=== PATIENT | male | born 1955 | race Hispanic/Latino ===

== ENCOUNTER 2024-09-19 05:47 | Day surgery (SDC) | payer OTHER ==
[2024-09-13 09:15] LABS: Absolute Eosinophils 0.1 K/uL (0-0.5); Absolute Monocytes 0.6 K/uL (0.1-1.3); Absolute Neutrophil 4.8 K/uL (1.8-8.0); Basophils % 0.3 % (0-1.3); Eosinophils % 0.8 % (0-4.4); Hematocrit 43.2 % (39.6-49.0); Hemoglobin 14.6 g/dL (13.6-17.9); Lymphocytes % 27.1 % (15.3-44.8); MCH 31.2 pg (27.0-35.0); MCHC 33.8 g/dL (32.0-36.0); MCV 92.1 fL (80-100); MPV 7.4 fL (7.6-11.3); Monocytes % 8.2 % (3.3-12.3); Neutrophils % 63.6 % (41.7-73.7); Nucleated Red Blood Cells % 0.1 % (0-0); Platelets 266 thou/uL (152-406); RBC Red Blood Cell Count 4.69 M/uL (4.33-5.43); Red Cell Distribution Width 14.1 % (12.1-15.2)
[2024-09-13 09:28] LABS: Anion Gap 6.8 mEq/L (5.0-15.0); Potassium 3.8 mEq/L (3.5-5.1)
[2024-09-19] MEDS: Ringers Lactate 1,000 ML IV ONE (06:15)
[2024-09-19] MEDS ORDERED: LIDOCAINE 2% MPF 5 ML VIAL ONE (06:47)
[2024-09-19] MEDS ORDERED: FENTANYL CITR 100 MCG/2 ML ONE (06:47)
[2024-09-19] MEDS ORDERED: propofoL 200 MG/20 ML VIAL IV ONE (06:47)
[2024-09-19] MEDS ORDERED: ONDANSETRON 4 MG/2 ML VIAL ONE (06:47)
[2024-09-19] MEDS ORDERED: EPHEDRINE SULF 50 MG/ML VIAL ONE (07:09)
[2024-09-19] MEDS: CEFAZOLIN SODIUM 1 GM/VIAL ONE (07:10)
--- NOTE | 2024-09-19 08:31 | OP ---
Date of Procedure: 09/19/2024 Surgeon: Tommy Kim MD Preoperative Diagnosis: Right knee pain with mechanical symptoms, probable meniscal tear or tears. 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 2.Grade 3 to 4 chondromalacia of the medial tibia. 3.Medial meniscal tear. 4.Exuberant fat pad. Procedures Performed: Right knee arthroscopy with medial meniscal debridement, some abrasive chondro plasty, and some synovial debridement with debridement of exuberant fat pad. Estimated Blood Loss: 10 cc. Complications: There were no complications. Specimens: No pathology specimens sent. Indication For Operation: Mr. Crisostomo is a 68-year-old male, who started having significant pain r elated to the medial aspect of his knee. He denies any real specific inciting incident. However, th e pain definitely is not decreasing and continued to be painful. Risks, benefits, and alternatives o f different methods of treating this have been discussed with him. He does have an MRI which demonst rates probable meniscal tear or tears, and agrees to proceed. Description Of Procedure: The patient was taken to the operating room and placed in supine position. General anesthesia was easily obtained by the Anesthesia staff. Following this, a well-padded tour niquet was placed on superior right thigh, however, it was not used throughout the case. Right lower extremity was then prepped and draped in usual sterile fashion for the procedure. Following this, a standard superior medial arthroscopy portal was then placed with liberation of normal-appearing syno vial fluid. This was followed by placement of inferolateral portal which was done atraumatically wit h 1 pass. The knee was then sequentially examined including suprapatellar pouch, medial and lateral gutters, medial and lateral compartments, as well as the notch and patellofemoral joint. Pertinent f indings included a surprising amount of chondral damage of the medial femoral condyle. There does ap pear to be some unstable chondral flaps. Also seen was what appeared to be a horizontal portion of m edial meniscal tear as well as a posterior more radial tear. A standard inferomedial arthroscopy por danitza was then established using a needle for localization. The chondral surface was then probed. It did have unstable flaps along the lateral third of the medial femoral condyle. A 3.5 shaver was used to debride it back to a firm hook stable base. No chondral tissue was removed other than that, derek erazo was absolutely unstable by probe palpation. Following this, attention was then turned to the media l meniscus where the medial meniscus was debrided to a firm hook stable well contoured base. Attenti on was then turned to the exuberant fat pad, which appeared to overlie essentially half of the distal femur with the knee in extension and felt that this could very well cause impingement. Therefore, t his area of the fat pad which appeared to overlie the medial femoral condyle was debrided. After thi s, the knee was again examined in all the above areas. No further pathology seen, which had minimal arthroscopic intervention. The inferior arthroscopy portals were then stapled shut. Superior medial arthroscopy portal was then used for placement of Marcaine with epinephrine. This was then stapled. The patient was then placed in a very well-padded sterile dressing, awakened, and taken to recovery room in good condition. No complications. SE/MODL Voice ID: [id number] Report ID: [id number]
[2024-09-19 09:45] VITALS: BP 139/77; TEMP 96.9
[2024-09-19 09:50] VITALS: O2SAT 96
== END 2024-09-19 09:28 | disposition home or self-care (01) ==
LOC: OR 05:47
PROVIDERS: ATTEND Orthopaedic Surgery
PROC: 0SBC4ZZ Excision of Right Knee Joint, Percutaneous Endoscopic Approach (ICD-10-PCS; principal; 2024-09-19 07:00)
DX: S83.241D Other tear of medial meniscus, current injury, right knee, subsequent encounter (principal); M25.561 Pain in right knee; M94.261 Chondromalacia, right knee
CPT/HCPCS: 29881; 85025; 80048; 36415; J2704; J2003; J3010; J2405; J7120; J0690

== ENCOUNTER 2025-01-23 05:16 | Day surgery (SDC) | payer OTHER ==
[2025-01-19 10:06] LABS: Absolute Eosinophils 0.1 K/uL (0-0.5); Absolute Lymphocytes (CBC) 2.3 K/uL (0.7-4.9); Absolute Monocytes 0.7 K/uL (0.1-1.3); Absolute Neutrophil 8.9 K/uL (1.8-8.0); Basophils % 0.4 % (0-1.3); Eosinophils % 0.6 % (0-4.4); Hematocrit 40.1 % (39.6-49.0); Hemoglobin 13.6 g/dL (13.6-17.9); Lymphocytes % 19.5 % (15.3-44.8); MCH 30.5 pg (27.0-35.0); MCHC 33.8 g/dL (32.0-36.0); MPV 7.6 fL (7.6-11.3); Monocytes % 5.8 % (3.3-12.3); Neutrophils % 73.7 % (41.7-73.7); Nucleated Red Blood Cells % 0.1 % (0-0); Platelets 388 thou/uL (152-406); RBC Red Blood Cell Count 4.46 M/uL (4.33-5.43)
[2025-01-19 10:14] LABS: PT Prothrombin Time 11.7 SECONDS (10-13.0); PTT, Activated Partial Thromb 27.4 SECONDS (27.2-37.4); Protime INR 1.03
[2025-01-19 10:18] LABS: Specific Gravity 1.014 (1.005-1.030); Sqamous Epithelial <5 /HPF (None Seen); Urine Bacteria None Seen /HPF (<20); Urine Bilirubin NEGATIVE (Negative); Urine Blood 1+ (Negative); Urine Clarity Turbid (Clear); Urine Color Light-Yellow (Yellow); Urine Culture Reflex Order REFLEXED; Urine Glucose NEGATIVE (Negative); Urine Ketones NEGATIVE (Negative); Urine Microscopic Reflex YN ORDER UMIC; Urine Mucus Slight /HPF (None Seen); Urine Nitrite 2+ (Negative); Urine Protein NEGATIVE (Negative); Urine Urobilinogen Normal (Normal); Urine WBC 20-50 /HPF (<5); Urine pH 5.5 (5.0-7.0)
--- NOTE | 2025-01-19 10:32 | RAD REPORT ---
EXAMINATION: TWO VIEW CHEST XR CLINICAL INDICATION: Male, 69 years old. [facility] MAIN pre op for day surgery. Hypertension TECHNIQUE: 2 view radiographs of the chest were performed. COMPARISON: No prior exam. FINDINGS: The lungs are well inflated and clear. No pneumothorax or sizable effusion. The heart is normal in si ze. Mediastinal contours are unremarkable. IMPRESSION: No acute or significant abnormalities.
[2025-01-19 10:37] LABS: Albumin/Globulin Ratio 0.7 (1.1-1.8); Anion Gap 12.1 mEq/L (5.0-15.0); Bilirubin Total 0.5 mg/dL (0.2-1.0); Globulin 4.4 g/dL (2.3-3.5); Potassium 4.1 mEq/L (3.5-5.1); Protein, Total 7.4 g/dL (6.4-8.2)
[2025-01-23] MEDS ORDERED: MAGNESIUM SULFATE 1 gm IVPB 1 GM/100 ML BAG IV ONE (05:45)
[2025-01-23] MEDS ORDERED: DEXMEDETOMIDINE HCL 200 MCG/2 ML VIAL ONE (05:45)
[2025-01-23] MEDS ORDERED: LIDOCAINE 2% MPF 5 ML VIAL ONE (05:50)
[2025-01-23] MEDS ORDERED: KETAMINE HCL IN 0.9 % NACL 50 MG/5 ML SYRINGE IV ONE (05:50)
[2025-01-23] MEDS ORDERED: MIDAZOLAM HCL 2 MG/2 ML INJ ONE (05:51)
[2025-01-23] MEDS ORDERED: FENTANYL CITR 100 MCG/2 ML ONE (05:51)
[2025-01-23] MEDS: Oxycodone HCl/Acetaminophen 5/325 MG TAB ONE (05:51)
[2025-01-23] MEDS ORDERED: propofoL 200 MG/20 ML VIAL IV ONE (05:51)
[2025-01-23] MEDS: ACETAMINOPHEN 500 MG TAB ONE (05:51)
[2025-01-23] MEDS: Ringers Lactate 1,000 ML IV ONE (05:58)
[2025-01-23] MEDS ORDERED: dexAMETHasone 4 MG/ML VIAL ONE (06:01)
[2025-01-23] MEDS ORDERED: BUPIVACAINE 0.25% PF 30 ML VIAL ONE (06:01)
[2025-01-23] MEDS ORDERED: LIDOCAINE 1% MPF 5 ML VIAL ONE (06:01)
[2025-01-23] MEDS ORDERED: EPINEPHRINE 1 MG/ML VIAL ONE (06:02)
[2025-01-23] MEDS: CELECOXIB 100 MG CAPSULE ONE (06:14)
[2025-01-23] MEDS: GABAPENTIN 100 MG CAP ONE (06:15)
[2025-01-23] MEDS ORDERED: TRANEXAMIC ACID 1,000 MG/10 ML VIAL IV ONE (07:10)
[2025-01-23] MEDS ORDERED: EPHEDRINE SULF 50 MG/ML VIAL ONE (07:15)
[2025-01-23] MEDS: CEFAZOLIN SODIUM 2 GM/VIAL ONE (07:20)
[2025-01-23] MEDS ORDERED: Ringers Lactate 1,000 ML IV ONE (09:10)
[2025-01-23] MEDS ORDERED: DOCUSATE NA 100 MG CAP PO PRN (09:53)
--- NOTE | 2025-01-23 09:53 | P.BOP ---
Preoperative diagnosis: right knee arthritis Postoperative diagnosis: same Primary procedure: right knee total knee arthoplasty Estimated blood loss: 100ccs Anesthesia: General Transferred to: Recovery Room Condition: Good
[2025-01-23 10:23] VITALS: O2SAT 94
--- NOTE | 2025-01-23 11:21 | OP ---
Date of Procedure: 01/23/2025 Surgeon: Tommy Kim MD Preoperative Diagnosis: Right knee severe osteoarthritis. Postoperative Diagnosis: Right knee severe osteoarthritis. Procedure: Right total knee arthroplasty using the [employer]. Estimated Blood Loss: 100 cc. Complications: There were no complications. Specimens: No pathology specimens sent other than those removed pieces at time of surgery. Indication For Operation: Mr. Crisostomo is a 69-year-old male who had severe pain in his knee. This was primarily on the medial aspect, although he did have diffuse tenderness. He had an MRI, which d emonstrated probable meniscal tear or tears. He elected at that time to have arthroscopy knowing moises t this would not affect the arthritic changes. These arthritic changes were again identified during arthroscopy. The patient tolerated the arthroscopy well, but unfortunately continued to have pain. This continued despite physical therapy as well as injection and medical management. The patient at this time opts for total knee arthroplasty and risks, benefits, alternatives of the procedure have be en discussed with him. He states he understands things as presented and wishes to proceed. Procedure In Detail: The patient had a block in the holding area and then was taken to the operating suite, where general anesthesia was easily obtained by Anesthesia staff. Following this, a well-pad ded tourniquet was placed on the superior right thigh. Right lower extremity was then prepped and dr aped in the usual sterile fashion for the procedure. Following this, a standard anterior incision wa s taken down carefully through the skin and soft tissues, meticulous hemostasis being maintained usin g Bovie electrocautery. This leads down to the appropriate level. Where the extensor mechanism was e xposed. A shaan was made in the superomedial aspect of the patella and planned medial parapatellar in cision was then performed with liberation of approximately 30 cc of rather normal-appearing synovial fluid. This was followed by excision of the medial meniscus and the ACL. The patella was then paradise ed. Knee was bent. Lateral meniscus was removed as well as PCL. Knee was examined, was found to botello ve very significant changes along the medial aspect of the knee. This includes both the medial femor al condyle as well as tibial plateau. Also seen are some degenerative changes of both the patella an d the lateral compartment. An intramedullary alignment guide was then placed. Distal femur was cut and was measured. Following this, the remainder of the femoral cuts were then made, which appeared t o be standard. Attention was then turned back to the tibia to ensure that the meniscal tissue was re moved with excellent visualization. Following this, tibia was then cut. It was then sized. It was then trialed with a size 10 poly and it comes to full extension, appears to be balanced, although may be slightly loose. Does appear to have appropriate alignment. The patella appears to glide well. The patella was then calipered and cut using a new saw blade as well as irrigation to avoid thermal i njury to the patella. After this, the trial patella button was placed. It was also found to glide i deally. The trial components were then removed and the box was cut, followed by tibial punch. The b jessica surface was then prepped for cementation. This was cemented in standard fashion with removal of any unsupported cement. This was followed by allowing the cement to cure with a size 12 poly, which was slightly larger than 10. After the cement had cured, it was brought through range of motion. Th e patella appears to glide excellently and it does appear to be a little better with a size 12 than s ize 10. Therefore, the decision was made to place the size 12 final bearing. The trial bearing was removed. Search was made for any unsupported cement and the final polyethylene was then placed. It was locked in place using locking bar. It was again checked for stability, appears to be balanced as well as excellent gliding of the patella. It was irrigated and the extensor mechanism was then repa ired using heavy Ethibond sutures. It was again irrigated. Skin was closed using 2-0 Vicryl sutures followed by matt. The patient was then placed in a well-padded sterile dressing, awakened, and taken to recovery in good condition. There were no complications. SE/MODL Voice ID: [id number] Report ID: [id number]
[2025-01-23] MEDS: HYDROCODONE/APAP 7.5/325 MG TAB PO PRN (11:30)
[2025-01-23] MEDS: CEFAZOLIN 1 GM in NA CHLORIDE 0.9% 50 ML IVPB SCH (16:51)
--- NOTE | 2025-01-23 18:03 | P.CNS ---
Date of Consult: 01/23/25 Reason for Consult: Assistance with medical management Requesting Physician: Tommy Kim Chief Complaint: Patient admitted for right total knee arthroplasty History of Present Illness: Patient is a 69-year-old gentleman came to the hospital for right total knee arthroplasty. Patient with pain in the right knee for quite a while and arthritic pain and worsening ambulation. Patient followed up with orthopedic and decision was made for right total knee arthroplasty. Patient with few medical issues and patient low risk for cardiopulmonary complications. Patient was cleared for surgery. Patient has done well in the postoperative period. Patient is doing well and will work with physical therapy today. Continue with DVT prophylaxis and pain control. Patient admitted for extended recovery. Allergies No Known Allergies Allergy (Verified 01/19/25 09:27) Home Medications: Atorvastatin Calcium 40 mg PO DAILY 09/13/24 lisinopriL [Zestril] 10 mg PO DAILY 09/13/24 Levofloxacin [Levaquin] 500 mg PO DAILY 01/23/25 - Past Medical/Surgical History Diabetic: No -: blood pressure -: uti 2 weeks ago - Social History Alcohol use: Yes CD- Drugs: No Caffeine use: Yes Place of Residence: Home Physical Examination Temp Pulse Resp BP Pulse Ox 97.6 F 79 16 101/61 94 01/23/25 16:00 01/23/25 16:00 01/23/25 16:00 01/23/25 16:00 01/23/25 16:00 - Problems (1) Status post total right knee replacement Current Visit: Yes Status: Acute (2) HLD (hyperlipidemia) Current Visit: Yes Status: Acute (3) HTN (hypertension) Current Visit: Yes Status: Acute Conclusions/ Impression: Plan: 1. Continue with orthopedic follow and continue with the plan of care 2. Physical therapy evaluation 3. Anticoagulation for DVT prophylaxis; monitor H&H. 4. Pain control 5. Strict blood pressure control 6. GI DVT prophylaxis
[2025-01-24 05:54] LABS: Hematocrit 35.1 % (39.6-49.0)
[2025-01-24] MEDS: ENOXAPARIN 30 MG/0.3 ML SQ SCH (06:59)
[2025-01-24] MEDS: ATORVASTATIN 40 MG TAB PO SCH (08:33)
[2025-01-24 12:27] VITALS: BP 137/77; TEMP 98.2
== END 2025-01-24 12:53 | disposition home health service (06) ==
LOC: OR 05:16 → 2ND 09:53 → OR 01-24 12:53
PROVIDERS: ATTEND Orthopaedic Surgery
PROC: 0SRC0J9 Replacement of Right Knee Joint with Synthetic Substitute, Cemented, Open Approach (ICD-10-PCS; principal; 2025-01-23 07:00)
DX: M17.11 Unilateral primary osteoarthritis, right knee (principal); M25.561 Pain in right knee
CPT/HCPCS: 87088; 85025; 81001; 87086; 36415 ×2; 85610; 88305; 88311; 85730; 87077; 87186; 85018; 85014; 80053; 71046; 97116 ×2; 97139; 97161; 97530 ×2; 94010; 27447; J3475; J2704; J1100; J2003 ×2; J1650; J2250; J3010; J0171; J7120 ×2; J0690 ×3